=== PATIENT | male | born 1965 | race Caucasian/White ===

== ENCOUNTER → 2016-07-31 | Outpatient (CLI) | payer BC ==
[~2016-07-31] MED LIST: ALPR0.5T PO; AMIT25TA PO; ATOR10TA PO; DULO60CA44 PO; IOHEXOL 300 MG/ML 50 ML VIAL. IT ONE; LIDOCAINE 1% Multi-Dose 20 ML VIAL. ID ONE; LORA-627 PO; OMEP10CA3 PO; OXYC15TA PO; TRIA1TAB5 PO
--- NOTE | 2016-07-31 16:25 | KCIC ---
LUMBAR MYELOGRAM INDICATION: Reason For Study Reason: LOWER BACK PAIN INTO LEFT HIP/THIGH SINCE 04/2016, NO KNOWN INJURY / Spl. Instructions: / History: Fluoroscopy time: 1:22 minutes TECHNIQUE: After discussion of the procedure, indications, risks, benefits, and alternatives the patient provided written and oral consent for the procedure. With the patient in a prone position on the fluoroscopy table, the L3-L4 interspace was selected for puncture and the overlying skin was prepped and draped in sterile fashion. Local anesthesia was achieved with approximately 3 mL of buffered 1% lidocaine. Under intermittent fluoroscopic guidance, a 25 gauge Acosta needle was advanced into the thecal space with return of clear CSF. Approximately 12 mL of Omni 180 contrast was administered into the thecal space under intermittent fluoroscopic observation. The needle was removed and pressure applied until hemostasis was achieved. The patient was sent to CT for scanning through the lumbar spine. The patient tolerated the procedure well without immediate complication. Post myelographic images demonstrate contrast within the thecal sac. There are ventral epidural filling defects at L4-L5, L3-L4, and L2-L3 suggestive of disc protrusions at these levels. IMPRESSION: Technically successful fluoroscopy guided intrathecal injection of contrast, to be followed by CT myelogram of the lumbar spine. Electronically signed by: Rojelio Lawson (Jul 31, 2016 16:23:46)
--- NOTE | 2016-07-31 16:33 | KCIC ---
PQRS STATEMENT One or more of the following individualized dose reduction techniques were utilized for this study:1.Automated exposure control. 2.Adjustment of the mA and/orkVaccording to patient size. 3.Use of iterative reconstruction technique CT lumbar spine Indication: Reason For Study Reason: LOW BACK PAIN / Spl. Instructions: / History: Technique: Multiple contiguous axial images were obtained through the lumbar spine after intrathecal administration of iodinated contrast. Coronal and sagittal reformations were created. Findings: Alignment and curvature are within normal limits. There is no compression fracture or deformity the conus terminates normally at the lower limits of normal at L2. Visualized intra-abdominal contents are within normal limits. At L5-S1 there is no spinal stenosis. At L4-L5 there is a broad-based disc protrusion which mildly narrows the spinal canal. No evidence for significant neural foraminal narrowing. There is moderate disc height loss with associated sclerotic degenerative endplate change and multiple Schmorl's nodes. At L3-L4 there is a broad-based disc protrusion causing mild narrowing of the spinal canal. Neural foramina are well maintained. There is moderate disc height loss with associated sclerotic degenerative endplate change in multiple Schmorl's nodes. At L2-L3 there is no spinal stenosis. At the level of the L2 vertebral body however, there is a superiorly migrated extruded disc eccentric to the left which likely causes mass effect upon the descending left L2 nerve. Correlate for left L2 radiculopathy symptoms. At L1-L2 there is no spinal stenosis. Impression: - At the level of the L2 vertebral body there is a superiorly migrated extruded disc eccentric to the left which likely causes mass effect upon the descending left L2 nerve. Correlate for left L2 radiculopathy symptoms. - There is also degenerative disc disease at L3-L4 and L4-L5 which is detailed above but results in mild central spinal narrowing. Electronically signed by: Rojelio Lawson (Jul 31, 2016 16:31:34)
--- NOTE | 2016-07-31 16:36 | KCIC ---
AP and lateral lumbar spine with flexion and extension views Indication: Reason For Study Reason: LOWER BACK PAIN INTO LEFT HIP/THIGH SINCE 04/2016, NO KNOWN INJURY / Spl. Instructions: / History: Findings: Alignment and curvature are within normal limits. No abnormal motion through flexion or extension. There is no compression fracture or deformity. Degenerative disc height loss is greatest at L3-L4 and L4-L5 where there is some degenerative endplate irregularity. SI joints are open and corticated. Impression: - No abnormal motion through flexion or extension. Degenerative disc disease is greatest at L3-4 and L4-L5. Electronically signed by: Rojelio Lawson (Jul 31, 2016 16:35:05)
== END | disposition home or self-care (01) ==
LOC: KCIC 13:55
PROVIDERS: ATTEND Neurological Surgery
DX: M51.26 Other intervertebral disc displacement, lumbar region (principal); M54.16 Radiculopathy, lumbar region; M48.06 Spinal stenosis, lumbar region
CPT/HCPCS: 72110; 72132; 72265; Q9967